=== PATIENT | female | born 1935 | race Caucasian/White ===

== ENCOUNTER 2021-08-16 14:53 | Inpatient (IN) ==
[2021-08-16] MEDS ORDERED: Ondansetron 4 MG/2 ML VIAL IVP ONE (15:23)
[2021-08-16 16:50] LABS: Adenovirus Not Detected (Not Detect); Bordetella Pertussis Not Detected (Not Detect); Chlamydophila pneumoniae Not Detected (Not Detect); Coronavirus 229E DETECTED (Not Detect); Coronavirus HKU1 Not Detected (Not Detect); Coronavirus NL63 Not Detected (Not Detect); Coronavirus OC43 Not Detected (Not Detect); Human Metapneumovirus Not Detected (Not Detect); Human Rhinovirus/Enterovirus Not Detected (Not Detect); Influenza A Subtype 2009 H1 Not Detected (Not Detect); Influenza B Not Detected (Not Detect); Mycoplasma pneumoniae Not Detected (Not Detect); Parainfluenza Virus 1 Not Detected (Not Detect); Parainfluenza Virus 2 Not Detected (Not Detect); Parainfluenza Virus 3 Not Detected (Not Detect); Parainfluenza Virus 4 Not Detected (Not Detect); Respiratory Syncytial Virus Not Detected (Not Detect); SARS-CoV-2 Not Detected (Not Detect)
[2021-08-16 16:51] LABS: Bacteria,Urine Few per hpf (None-Few); Bilirubin,Urine Small (Negative); Blood,Urine Negative (Negative); Clarity,Urine Turbid (Clear); Color,Urine Yellow (Yellow); Glucose,Urine (UA) 30 mg/dL (Normal); Hyaline Casts,Urine Many per lpf (None Seen); Ketones,Urine Trace mg/dL (Negative); Leukocyte Esterase,Urine Large (Negative); Mucus,Urine Few per lpf (None-Few); Nitrite,Urine Negative (Negative); PH,Urine 5.5 pH Units (5.0-8.0); Protein,Urine 70 mg/dL (Neg-Trace); RBC,Urine 0-3 per hpf (0-3); Specific Gravity,Urine 1.028 (1.010-1.025); Squamous Epithelial Cell,Urine Few per hpf (None-Few); WBC,Urine 15-30 per hpf (0-3)
[2021-08-16 17:21] LABS: Immature Granulocytes % 0.4 % (0-4)
[2021-08-16 17:22] LABS: Basophils # 0.1 K/mcL (0.0-0.2); Basophils % 0.1 %; Hematocrit 43.9 % (35.3-44.9); Lymphocytes # 52.5 K/mcL (0.6-4.6); Lymphocytes % 79.4 %; Mean Corpuscular HGB Conc 31.9 g/dL (31.6-35.5); Mean Corpuscular Hemoglobin 30.7 pg (28.0-33.3); Mean Corpuscular Volume 96.3 fL (83.0-100.0); Monocytes # 1.8 K/mcL (0.0-1.3); Monocytes % 2.7 %; Neutrophils # 11.5 K/mcL (1.6-8.9); Nucleated Red Blood Cells 0.1 /100 WBC (0); Platelet Count 245 K/mcL (140-400); Red Blood Count 4.56 M/mcL (3.82-4.97); Red Cell Distribution Width 13.9 % (11.5-14.5); Segmented Neutrophils % 17.4 %
[2021-08-16 17:27] LABS: White Blood Count 66.1 K/mcL (4.3-11.1)
[2021-08-16 17:30] LABS: INR 1.1; Prothrombin Time 11.9 Seconds (9.4-12.1)
[2021-08-16 17:33] LABS: Activated Partial Thrombo Time 27.1 Seconds (26.0-36.0)
[2021-08-16 17:41] LABS: Platelet Estimate Normal (Normal); Reactive Lymphocytes Present (Not Present)
[2021-08-16] MEDS ORDERED: Aspirin 81 MG TAB.CHEW PO STA (17:58)
[2021-08-16 17:59] LABS: Albumin 4.5 g/dL (3.5-5.7); Albumin/Globulin Ratio 1.8 (1.1-2.2); Bilirubin,Direct 0.4 mg/dL (0.0-0.2); Bilirubin,Indirect 1.8 mg/dL (0.0-1.0); Bilirubin,Total 2.2 mg/dL (0.3-1.0); Calcium 9.2 mg/dL (8.6-10.3); Globulin 2.5 g/dL (2.4-3.5); Potassium 4.3 mEq/L (3.5-5.1); Troponin I 0.04 ng/mL (< 0.04)
[2021-08-16] MEDS: 0.9 % Sodium Chloride 1,000 ML IVC SCH (18:21)
[2021-08-16] MEDS ORDERED: Naloxone 0.4 MG/ML INJ IVP PRN (18:22)
[2021-08-16] MEDS ORDERED: Acetaminophen 650 MG RECTAL SUPP RC PRN (18:28)
[2021-08-16] MEDS ORDERED: Morphine Sulfate 2 MG/ML SYRINGE IVP PRN (18:28)
[2021-08-17 02:25] LABS: Hematocrit 41.9 % (35.3-44.9); Hemoglobin 13.2 g/dL (11.5-15.4); Mean Corpuscular HGB Conc 31.5 g/dL (31.6-35.5); Mean Corpuscular Hemoglobin 30.3 pg (28.0-33.3); Mean Corpuscular Volume 96.3 fL (83.0-100.0); Mean Platelet Volume 11.1 fL (9.4-12.4); Platelet Count 243 K/mcL (140-400); Red Blood Count 4.35 M/mcL (3.82-4.97)
[2021-08-17 02:32] LABS: White Blood Count 65.5 K/mcL (4.3-11.1)
[2021-08-17 02:35] LABS: Calcium 8.7 mg/dL (8.6-10.3); Potassium 4.2 mEq/L (3.5-5.1)
[2021-08-17] MEDS: Famotidine 20 MG/2 ML VIAL IVP SCH ×2 (05:41→17:26)
[2021-08-17] MEDS: Ondansetron 4 MG/2 ML VIAL IVP PRN (05:43)
[2021-08-17] MEDS: 0.9 % Sodium Chloride 1,000 ML IVC SCH (15:36)
[2021-08-17] MEDS: Gabapentin 100 MG CAPSULE PO SCH ×2 (15:37→20:44)
[2021-08-18] MEDS ORDERED: *HR* LORazepam 2 MG/ML VIAL IVP ONE (00:10)
[2021-08-18] MEDS: 0.9 % Sodium Chloride 1,000 ML IVC SCH ×3 (00:25→20:40)
[2021-08-18] MEDS: Famotidine 20 MG/2 ML VIAL IVP SCH (05:09)
[2021-08-18 05:35] LABS: Hematocrit 40.8 % (35.3-44.9); Hemoglobin 12.6 g/dL (11.5-15.4); Mean Corpuscular HGB Conc 30.9 g/dL (31.6-35.5); Mean Corpuscular Hemoglobin 30.4 pg (28.0-33.3); Mean Corpuscular Volume 98.6 fL (83.0-100.0); Mean Platelet Volume 11.1 fL (9.4-12.4); Platelet Count 210 K/mcL (140-400); Red Blood Count 4.14 M/mcL (3.82-4.97); Red Cell Distribution Width 13.9 % (11.5-14.5)
[2021-08-18 06:36] LABS: Calcium 8.1 mg/dL (8.6-10.3)
[2021-08-18] MEDS ORDERED: BuPROPion XL (24 HR) 150 MG TABLET PO SCH (09:00)
[2021-08-18] MEDS: Gabapentin 100 MG CAPSULE PO SCH ×2 (09:02→14:54)
[2021-08-18] MEDS: Ondansetron 4 MG/2 ML VIAL IVP PRN (09:25)
[2021-08-18] MEDS ORDERED: Ondansetron 4 MG/2 ML VIAL IVP PRN ×2 (14:57→19:20)
[2021-08-18] MEDS ORDERED: *HR* FentaNYL (PF) 100 MCG/2 ML VIAL ONE ×2 (15:41→17:02)
[2021-08-18] MEDS ORDERED: Lidocaine HCL 4 ML Topical Solution (Laryng-O-Jet Kit Sterile Pak) TP ONE (15:41)
[2021-08-18] MEDS ORDERED: *HR* Rocuronium Bromide 50 MG/5 ML VIAL ONE (15:41)
[2021-08-18] MEDS ORDERED: Lidocaine -MPF 2% 5 ML VIAL ONE (15:41)
[2021-08-18] MEDS ORDERED: Ondansetron 4 MG/2 ML VIAL ONE (15:41)
[2021-08-18] MEDS ORDERED: CefOXitin 1,000 MG VIAL ONE (15:46)
[2021-08-18] MEDS ORDERED: cefOXitin 2,000 MG in 0.9 % Sodium Chloride Mini Bag 100 ML IVPB STA (16:28)
[2021-08-18] MEDS ORDERED: Albumin Human 5% 12.5 GM/250 ML IV.SOLN ONE (16:47)
[2021-08-18] MEDS: *HR* FentaNYL (PF) 100 MCG/2 ML VIAL IVP PRN ×3 (18:02→18:40)
[2021-08-18] MEDS ORDERED: Acetaminophen IV 1,000 MG/100 ML BAG IVPB STA (18:23)
[2021-08-18] MEDS ORDERED: Acetaminophen IV 1,000 MG/100 ML BAG IVPB ONE (18:26)
[2021-08-18] MEDS ORDERED: *HR* Labetalol 20 MG/4 ML SYRINGE IVP STA (18:33)
[2021-08-18] MEDS: Morphine Sulfate 2 MG/ML SYRINGE IVP PRN (20:38)
[2021-08-18] MEDS: cefOXitin 2,000 MG in Water for inj. (sterile) 10 ML IVP SCH (23:13)
[2021-08-19] MEDS ORDERED: *HR* HYDROmorphone (PF) 1 MG/ML SYRINGE IVP ONE (00:34)
[2021-08-19] MEDS: 0.9 % Sodium Chloride 1,000 ML IVC SCH ×3 (04:43→23:27)
[2021-08-19] MEDS: Morphine Sulfate 2 MG/ML SYRINGE IVP PRN ×3 (05:48→21:33)
[2021-08-19 06:11] LABS: Hemoglobin 13.2 g/dL (11.5-15.4)
[2021-08-19 06:13] LABS: Hematocrit 42.6 % (35.3-44.9); Mean Corpuscular Hemoglobin 30.6 pg (28.0-33.3); Mean Corpuscular Volume 98.8 fL (83.0-100.0); Mean Platelet Volume 11.3 fL (9.4-12.4); Platelet Count 221 K/mcL (140-400); Red Blood Count 4.31 M/mcL (3.82-4.97); Red Cell Distribution Width 13.4 % (11.5-14.5)
[2021-08-19 06:20] LABS: White Blood Count 63.5 K/mcL (4.3-11.1)
[2021-08-19 06:32] LABS: BUN/Creatinine Ratio 37 (6-26); Blood Urea Nitrogen 34 mg/dL (8-23); Calcium 8.7 mg/dL (8.6-10.3); Carbon Dioxide 28 mEq/L (23-29); Chloride 110 mEq/L (98-107); Glucose 160 mg/dL (70-105); Osmolality,Calculated 315 (280-300); Sodium 147 mEq/L (136-145); eGFR For African Americans > 60 (> 60); eGFR For Non-African Americans 59 (> 60)
[2021-08-19] MEDS: cefOXitin 2,000 MG in Water for inj. (sterile) 10 ML IVP SCH ×3 (08:30→23:30)
[2021-08-19] MEDS ORDERED: *HR* Dextrose 50 % in Water (Syg) 50 ML SYRINGE IVP PRN (11:46)
[2021-08-19] MEDS ORDERED: D5% in Water 1,000 ML IVC PRN (11:46)
[2021-08-19] MEDS ORDERED: Dextrose Gel 15 GM/37.5 ML TUBE PO PRN ×2 (11:46)
[2021-08-19] MEDS: Insulin LISPRO 300 UNITS/3 ML VIAL SUBQ SCH ×2 (17:08→21:36)
[2021-08-20] MEDS: 0.9 % Sodium Chloride 1,000 ML IVC SCH ×2 (05:11→09:25)
[2021-08-20 05:49] LABS: Immature Granulocytes % 0.5 % (0-4); Lymphocytes # 46.7 K/mcL (0.6-4.6); Lymphocytes % 78.6 %; Mean Corpuscular Hemoglobin 30.1 pg (28.0-33.3); Mean Corpuscular Volume 100.3 fL (83.0-100.0); Mean Platelet Volume 11.5 fL (9.4-12.4); Monocytes % 1.6 %; Neutrophils # 11.5 K/mcL (1.6-8.9); Platelet Count 207 K/mcL (140-400); Red Blood Count 3.99 M/mcL (3.82-4.97); Red Cell Distribution Width 13.7 % (11.5-14.5); Segmented Neutrophils % 19.3 %
[2021-08-20 05:54] LABS: White Blood Count 59.4 K/mcL (4.3-11.1)
[2021-08-20 06:10] LABS: BUN/Creatinine Ratio 41 (6-26); Blood Urea Nitrogen 26 mg/dL (8-23); Calcium 8.5 mg/dL (8.6-10.3); Carbon Dioxide 25 mEq/L (23-29); Chloride 112 mEq/L (98-107); Glucose 139 mg/dL (70-105); Magnesium 2.2 mg/dL (1.6-2.6); Osmolality,Calculated 311 (280-300); Phosphorous 1.2 mg/dL (2.7-4.5); Potassium 3.3 mEq/L (3.5-5.1); Sodium 147 mEq/L (136-145); eGFR For African Americans > 60 (> 60); eGFR For Non-African Americans > 60 (> 60)
[2021-08-20] MEDS ORDERED: Potassium Phosphate 44 MEQ in 0.9 % Sodium Chloride 250 ML IVPB ONE (06:44)
[2021-08-20] MEDS: Insulin LISPRO 300 UNITS/3 ML VIAL SUBQ SCH ×4 (08:19→21:29)
[2021-08-20] MEDS: cefOXitin 2,000 MG in Water for inj. (sterile) 10 ML IVP SCH ×2 (09:32→16:55)
[2021-08-20] MEDS: Morphine Sulfate 2 MG/ML SYRINGE IVP PRN (12:49)
[2021-08-20] MEDS: D5% in Water 1,000 ML IVC SCH (13:42)
[2021-08-20] MEDS: Ondansetron 4 MG/2 ML VIAL IVP PRN ×2 (15:30→21:35)
[2021-08-21] MEDS: cefOXitin 2,000 MG in Water for inj. (sterile) 10 ML IVP SCH ×3 (00:30→16:29)
[2021-08-21] MEDS: D5% in Water 1,000 ML IVC SCH ×2 (03:26→16:29)
[2021-08-21 06:52] LABS: Hematocrit 37.9 % (35.3-44.9); Hemoglobin 11.7 g/dL (11.5-15.4); Mean Corpuscular HGB Conc 30.9 g/dL (31.6-35.5); Mean Corpuscular Hemoglobin 31.5 pg (28.0-33.3); Mean Corpuscular Volume 101.9 fL (83.0-100.0); Mean Platelet Volume 11.7 fL (9.4-12.4); Platelet Count 232 K/mcL (140-400); Red Blood Count 3.72 M/mcL (3.82-4.97)
[2021-08-21 07:01] LABS: BUN/Creatinine Ratio 38 (6-26); Blood Urea Nitrogen 24 mg/dL (8-23); Calcium 8.4 mg/dL (8.6-10.3); Carbon Dioxide 29 mEq/L (23-29); Chloride 107 mEq/L (98-107); Glucose 150 mg/dL (70-105); Magnesium 2.1 mg/dL (1.6-2.6); Osmolality,Calculated 301 (280-300); Phosphorous 1.7 mg/dL (2.7-4.5); Potassium 3.9 mEq/L (3.5-5.1); Sodium 142 mEq/L (136-145); eGFR For African Americans > 60 (> 60); eGFR For Non-African Americans > 60 (> 60)
[2021-08-21 07:29] LABS: White Blood Count 54.8 K/mcL (4.3-11.1)
[2021-08-21 08:33] LABS: Lymphocytes # 32.9 K/mcL (0.6-4.6); Monocytes # 2.2 K/mcL (0.0-1.3); Neutrophils # 19.7 K/mcL (1.6-8.9); Platelet Estimate Normal (Normal)
[2021-08-21] MEDS: Insulin LISPRO 300 UNITS/3 ML VIAL SUBQ SCH ×4 (09:25→21:35)
[2021-08-21] MEDS: Pantoprazole 40 MG VIAL IVP SCH (17:51)
[2021-08-21] MEDS: Ondansetron 4 MG/2 ML VIAL IVP PRN (17:52)
[2021-08-22] MEDS ORDERED: Water for inj. (sterile) 10 ML ONE (02:08)
[2021-08-22] MEDS: cefOXitin 2,000 MG in Water for inj. (sterile) 10 ML IVP SCH ×3 (02:10→15:30)
[2021-08-22 05:15] LABS: Basophils % 0.1 %; Eosinophils % 0.5 %; Immature Granulocytes % 0.4 % (0-4); Monocytes % 1.5 %
[2021-08-22 05:16] LABS: Basophils # 0.1 K/mcL (0.0-0.2); Eosinophils # 0.3 K/mcL (0.0-0.6); Hematocrit 35.3 % (35.3-44.9); Hemoglobin 10.7 g/dL (11.5-15.4); Lymphocytes # 40.8 K/mcL (0.6-4.6); Lymphocytes % 82.4 %; Mean Corpuscular HGB Conc 30.3 g/dL (31.6-35.5); Mean Corpuscular Hemoglobin 30.5 pg (28.0-33.3); Mean Corpuscular Volume 100.6 fL (83.0-100.0); Mean Platelet Volume 11.1 fL (9.4-12.4); Monocytes # 0.7 K/mcL (0.0-1.3); Neutrophils # 7.5 K/mcL (1.6-8.9); Platelet Count 212 K/mcL (140-400); Red Blood Count 3.51 M/mcL (3.82-4.97); Red Cell Distribution Width 13.7 % (11.5-14.5); Segmented Neutrophils % 15.1 %
[2021-08-22 05:25] LABS: White Blood Count 49.5 K/mcL (4.3-11.1)
[2021-08-22 05:38] LABS: BUN/Creatinine Ratio 28 (6-26); Blood Urea Nitrogen 19 mg/dL (8-23); Calcium 8.2 mg/dL (8.6-10.3); Carbon Dioxide 28 mEq/L (23-29); Chloride 102 mEq/L (98-107); Glucose 141 mg/dL (70-105); Magnesium 1.8 mg/dL (1.6-2.6); Osmolality,Calculated 287 (280-300); Potassium 3.9 mEq/L (3.5-5.1); Sodium 136 mEq/L (136-145); eGFR For African Americans > 60 (> 60); eGFR For Non-African Americans > 60 (> 60)
[2021-08-22] MEDS: Pantoprazole 40 MG VIAL IVP SCH ×2 (05:51→18:25)
[2021-08-22] MEDS: D5% in Water 1,000 ML IVC SCH ×2 (08:51→11:42)
[2021-08-22] MEDS: Insulin LISPRO 300 UNITS/3 ML VIAL SUBQ SCH ×4 (09:01→22:09)
[2021-08-22 12:08] LABS: Reactive Lymphocytes Present (Not Present); Smudge Cells Present (Not Present)
[2021-08-22 12:10] LABS: Platelet Estimate Normal (Normal)
[2021-08-23] MEDS: cefOXitin 2,000 MG in Water for inj. (sterile) 10 ML IVP SCH ×3 (00:42→17:30)
[2021-08-23 07:08] LABS: Basophils % 0.1 %; Eosinophils % 0.5 %; Mean Platelet Volume 10.9 fL (9.4-12.4)
[2021-08-23 07:09] LABS: Eosinophils # 0.2 K/mcL (0.0-0.6); Hematocrit 34.9 % (35.3-44.9); Hemoglobin 11.2 g/dL (11.5-15.4); Immature Granulocytes % 0.4 % (0-4); Lymphocytes # 36.2 K/mcL (0.6-4.6); Lymphocytes % 83.3 %; Mean Corpuscular HGB Conc 32.1 g/dL (31.6-35.5); Mean Corpuscular Hemoglobin 31.5 pg (28.0-33.3); Mean Corpuscular Volume 98.3 fL (83.0-100.0); Monocytes # 0.7 K/mcL (0.0-1.3); Monocytes % 1.5 %; Platelet Count 225 K/mcL (140-400); Red Blood Count 3.55 M/mcL (3.82-4.97); Red Cell Distribution Width 13.1 % (11.5-14.5); Segmented Neutrophils % 14.2 %
[2021-08-23 07:14] LABS: Neutrophils # 6.2 K/mcL (1.6-8.9)
[2021-08-23 07:16] LABS: White Blood Count 43.4 K/mcL (4.3-11.1)
[2021-08-23 07:25] LABS: BUN/Creatinine Ratio 19 (6-26); Blood Urea Nitrogen 11 mg/dL (8-23); Calcium 8.8 mg/dL (8.6-10.3); Carbon Dioxide 28 mEq/L (23-29); Chloride 107 mEq/L (98-107); Glucose 147 mg/dL (70-105); Magnesium 1.8 mg/dL (1.6-2.6); Osmolality,Calculated 282 (280-300); Phosphorous 2.4 mg/dL (2.7-4.5); Potassium 3.3 mEq/L (3.5-5.1); Sodium 135 mEq/L (136-145); eGFR For African Americans > 60 (> 60); eGFR For Non-African Americans > 60 (> 60)
[2021-08-23] MEDS: Insulin LISPRO 300 UNITS/3 ML VIAL SUBQ SCH ×3 (08:15→17:30)
[2021-08-23] MEDS: Pantoprazole 40 MG VIAL IVP SCH ×2 (08:15→17:30)
[2021-08-23 08:17] LABS: Platelet Estimate Normal (Normal); Reactive Lymphocytes Present (Not Present); Smudge Cells Present (Not Present)
[2021-08-23] MEDS: D5% in Water 1,000 ML IVC SCH (08:28)
[2021-08-24] MEDS: Insulin LISPRO 300 UNITS/3 ML VIAL SUBQ SCH ×5 (04:53→20:57)
[2021-08-24 05:02] LABS: Basophils % 0.1 %; Eosinophils % 0.5 %; Platelet Count 284 K/mcL (140-400); Segmented Neutrophils % 14.8 %
[2021-08-24 05:04] LABS: Basophils # 0.1 K/mcL (0.0-0.2); Eosinophils # 0.3 K/mcL (0.0-0.6); Hematocrit 41.2 % (35.3-44.9); Hemoglobin 12.7 g/dL (11.5-15.4); Immature Granulocytes % 0.6 % (0-4); Lymphocytes # 44.2 K/mcL (0.6-4.6); Lymphocytes % 82.4 %; Mean Corpuscular HGB Conc 30.8 g/dL (31.6-35.5); Mean Corpuscular Hemoglobin 30.4 pg (28.0-33.3); Mean Corpuscular Volume 98.6 fL (83.0-100.0); Mean Platelet Volume 10.8 fL (9.4-12.4); Monocytes # 0.9 K/mcL (0.0-1.3); Monocytes % 1.6 %; Neutrophils # 7.9 K/mcL (1.6-8.9); Red Blood Count 4.18 M/mcL (3.82-4.97); Red Cell Distribution Width 13.3 % (11.5-14.5)
[2021-08-24 05:25] LABS: BUN/Creatinine Ratio 16 (6-26); Blood Urea Nitrogen 10 mg/dL (8-23); Calcium 9.3 mg/dL (8.6-10.3); Carbon Dioxide 30 mEq/L (23-29); Chloride 104 mEq/L (98-107); Glucose 154 mg/dL (70-105); Magnesium 1.8 mg/dL (1.6-2.6); Osmolality,Calculated 294 (280-300); Phosphorous 2.5 mg/dL (2.7-4.5); Potassium 3.4 mEq/L (3.5-5.1); Sodium 141 mEq/L (136-145); eGFR For African Americans > 60 (> 60); eGFR For Non-African Americans > 60 (> 60)
[2021-08-24 05:30] LABS: White Blood Count 53.6 K/mcL (4.3-11.1)
[2021-08-24 05:57] LABS: Platelet Estimate Normal (Normal); Reactive Lymphocytes Present (Not Present); Smudge Cells Present (Not Present)
[2021-08-24] MEDS: Pantoprazole 40 MG VIAL IVP SCH (06:10)
[2021-08-24] MEDS: cefOXitin 2,000 MG in Water for inj. (sterile) 10 ML IVP SCH ×2 (06:10→08:41)
[2021-08-24] MEDS: D5% in Water 1,000 ML IVC SCH ×2 (06:13→11:52)
[2021-08-24 10:36] LABS: Adenovirus Not Detected (Not Detect); Bordetella Pertussis Not Detected (Not Detect); Chlamydophila pneumoniae Not Detected (Not Detect); Coronavirus 229E Not Detected (Not Detect); Coronavirus HKU1 Not Detected (Not Detect); Coronavirus NL63 Not Detected (Not Detect); Coronavirus OC43 Not Detected (Not Detect); Human Metapneumovirus Not Detected (Not Detect); Human Rhinovirus/Enterovirus Not Detected (Not Detect); Influenza A Subtype 2009 H1 Not Detected (Not Detect); Influenza B Not Detected (Not Detect); Mycoplasma pneumoniae Not Detected (Not Detect); Parainfluenza Virus 1 Not Detected (Not Detect); Parainfluenza Virus 2 Not Detected (Not Detect); Parainfluenza Virus 3 Not Detected (Not Detect); Parainfluenza Virus 4 Not Detected (Not Detect); Respiratory Syncytial Virus Not Detected (Not Detect); SARS-CoV-2 Not Detected (Not Detect)
[2021-08-25] MEDS: D5% in Water 1,000 ML IVC SCH ×2 (02:11→16:42)
[2021-08-25 06:14] LABS: Basophils % 0.1 %; Red Blood Count 3.85 M/mcL (3.82-4.97); Red Cell Distribution Width 13.6 % (11.5-14.5)
[2021-08-25 06:17] LABS: Basophils # 0.1 K/mcL (0.0-0.2); Eosinophils # 0.4 K/mcL (0.0-0.6); Eosinophils % 0.7 %; Hematocrit 40.1 % (35.3-44.9); Hemoglobin 11.7 g/dL (11.5-15.4); Immature Granulocytes % 0.6 % (0-4); Lymphocytes # 45.6 K/mcL (0.6-4.6); Lymphocytes % 81.9 %; Mean Corpuscular HGB Conc 29.2 g/dL (31.6-35.5); Mean Corpuscular Hemoglobin 30.4 pg (28.0-33.3); Mean Corpuscular Volume 104.2 fL (83.0-100.0); Monocytes # 1.1 K/mcL (0.0-1.3); Monocytes % 1.9 %; Neutrophils # 8.2 K/mcL (1.6-8.9); Platelet Count 264 K/mcL (140-400); Segmented Neutrophils % 14.8 %
[2021-08-25 06:20] LABS: White Blood Count 55.7 K/mcL (4.3-11.1)
[2021-08-25 06:21] LABS: BUN/Creatinine Ratio 13 (6-26); Blood Urea Nitrogen 8 mg/dL (8-23); Calcium 8.6 mg/dL (8.6-10.3); Carbon Dioxide 28 mEq/L (23-29); Chloride 105 mEq/L (98-107); Glucose 156 mg/dL (70-105); Magnesium 1.6 mg/dL (1.6-2.6); Osmolality,Calculated 288 (280-300); Phosphorous 2.6 mg/dL (2.7-4.5); Potassium 3.1 mEq/L (3.5-5.1); Sodium 138 mEq/L (136-145); eGFR For African Americans > 60 (> 60); eGFR For Non-African Americans > 60 (> 60)
[2021-08-25] MEDS: Insulin LISPRO 300 UNITS/3 ML VIAL SUBQ SCH ×4 (07:36→20:54)
[2021-08-25 07:40] LABS: Platelet Estimate Normal (Normal)
[2021-08-26] MEDS: D5% in Water 1,000 ML IVC SCH ×2 (00:05→05:56)
[2021-08-26] MEDS: Insulin LISPRO 300 UNITS/3 ML VIAL SUBQ SCH ×4 (09:26→21:05)
[2021-08-26] MEDS: Gabapentin 100 MG CAPSULE PO SCH ×2 (16:51→21:08)
[2021-08-27] MEDS ORDERED: *HR* Enoxaparin 40 MG/0.4 ML SYRINGE SQ SCH (06:00)
[2021-08-27] MEDS: Insulin LISPRO 300 UNITS/3 ML VIAL SUBQ SCH ×3 (07:46→17:17)
[2021-08-27] MEDS: Gabapentin 100 MG CAPSULE PO SCH ×2 (08:41→14:20)
[2021-08-27] MEDS ORDERED: BuPROPion XL (24 HR) 150 MG TABLET PO SCH (09:00)
[2021-08-27 11:12] VITALS: BP 120/61; PULSE 76; TEMP 98.2; O2SAT 96
[2021-08-27 14:28] LABS: Adenovirus Not Detected (Not Detect); Bordetella Pertussis Not Detected (Not Detect); Chlamydophila pneumoniae Not Detected (Not Detect); Coronavirus 229E Not Detected (Not Detect); Coronavirus HKU1 Not Detected (Not Detect); Coronavirus NL63 Not Detected (Not Detect); Coronavirus OC43 Not Detected (Not Detect); Human Metapneumovirus Not Detected (Not Detect); Human Rhinovirus/Enterovirus Not Detected (Not Detect); Influenza A Subtype 2009 H1 Not Detected (Not Detect); Influenza B Not Detected (Not Detect); Mycoplasma pneumoniae Not Detected (Not Detect); Parainfluenza Virus 1 Not Detected (Not Detect); Parainfluenza Virus 2 Not Detected (Not Detect); Parainfluenza Virus 3 Not Detected (Not Detect); Parainfluenza Virus 4 Not Detected (Not Detect); Respiratory Syncytial Virus Not Detected (Not Detect); SARS-CoV-2 Not Detected (Not Detect)
== END 2021-08-27 17:40 | DRG 330 ==
LOC: EMEROOARM 14:53 → 3ANU 14:53 → SUATTDRO 20:09 → 3ANU 20:43
PROVIDERS: ADMIT Internal Medicine; ATTEND Registered Nurse